=== PATIENT | male | born 1960 | race Hispanic/Latino ===

== ENCOUNTER 2023-08-29 07:55 | Outpatient (CLI) | payer BC | END 2023-08-29 07:56 | disposition home or self-care (01) | LOC: CT 07:55 | PROVIDERS: ATTEND Urology | DX: N40.1 Benign prostatic hyperplasia with lower urinary tract symptoms (principal); Q62.31 Congenital ureterocele, orthotopic; R31.29 Other microscopic hematuria; K62.89 Other specified diseases of anus and rectum; Z98.890 Other specified postprocedural states | CPT/HCPCS: 74178; 82565 ==